=== PATIENT | female | born 1955 | race Asian ===

== ENCOUNTER 2017-12-06 09:36 | Emergency (ER) | payer MEDICAID ==
[~2017-12-06] VITALS: Ht 152.4 cm; Wt 43.2 kg
[~2017-12-06 09:36] MED LIST: CALC260T6 PO; CHOL10002 PO; GUAI120015 PO; HYDR-569 PO; HYDR12.5 PO; LEVO150T8 PO; PSEU120T55 PO; RISE35TA PO
[2017-12-06 11:40] VITALS: BP 166/97
== END 2017-12-06 11:41 | disposition home or self-care (01) ==
LOC: ER 09:36
DX: S93.602A Unspecified sprain of left foot, initial encounter (principal); S90.32XA Contusion of left foot, initial encounter; I10 Essential (primary) hypertension; Z79.899 Other long term (current) drug therapy; W01.0XXA Fall on same level from slipping, tripping and stumbling without subsequent striking against object, initial encounter; Y93.89 Activity, other specified; Y92.89 Other specified places as the place of occurrence of the external cause; Y99.9 Unspecified external cause status
CPT/HCPCS: 73630; 99284

== ENCOUNTER 2018-02-20 12:18 | Emergency (ER) | payer MEDICAID ==
[~2018-02-20] VITALS: Ht 127 cm; Wt 37.0 kg
[2018-02-20 12:22] VITALS: BP 157/90
[2018-02-20] MEDS ORDERED: AMOX-419 PO (13:32)
== END 2018-02-20 14:07 | disposition home or self-care (01) ==
LOC: ER 12:18
DX: H66.92 Otitis media, unspecified, left ear (principal); I10 Essential (primary) hypertension; Z79.899 Other long term (current) drug therapy
CPT/HCPCS: 99283

== ENCOUNTER 2018-08-24 15:50 | Emergency (ER) | payer MEDICAID ==
[~2018-08-24] VITALS: Ht 134.6 cm; Wt 40.5 kg
[2018-08-24] MEDS ORDERED: AZIT250T PO (18:05)
[2018-08-24 18:31] VITALS: BP 193/88
== END 2018-08-24 18:33 | disposition home or self-care (01) ==
LOC: ER 15:51
DX: H66.92 Otitis media, unspecified, left ear (principal); I10 Essential (primary) hypertension; Z98.890 Other specified postprocedural states; Z86.69 Personal history of other diseases of the nervous system and sense organs; Z79.2 Long term (current) use of antibiotics; Z79.899 Other long term (current) drug therapy
CPT/HCPCS: 99283

== ENCOUNTER 2018-12-25 12:58 | Emergency (ER) | payer MEDICAID ==
[~2018-12-25] VITALS: Ht 147.3 cm; Wt 40.8 kg
[~2018-12-25 12:58] MED LIST changes: +CIPR7.5D2 EACH EAR; +HYDR-4383 PO; -HYDR-569 PO; +ONDA4TAB6 PO
[2018-12-25 13:33] VITALS: BP 164/84
== END 2018-12-25 16:00 | disposition left against medical advice (07) ==
LOC: ER 12:59
DX: H92.01 Otalgia, right ear (principal); Z53.21 Procedure and treatment not carried out due to patient leaving prior to being seen by health care provider

== ENCOUNTER 2019-01-14 08:10 | Emergency (ER) | payer MEDICAID ==
[~2019-01-14] VITALS: Ht 147.3 cm; Wt 38.6 kg
[2019-01-14 08:34] VITALS: BP 189/102
--- NOTE | 2019-01-14 09:20 | NUR ---
TERRA COTTA MASON #[id number]
--- NOTE | 2019-01-14 09:20 | NUR ---
ATTEMPTED TO USE VIDEO SHIP PAINTER HELPER LINE WITH PT. BUT THE PT KEEPS MAKING THE SAME SIGNS TO THE SHIP PAINTER HELPER AND THE SHIP PAINTER HELPER STATES SHE DOESN'T THINK THE PT IS COMPREHENDING WHAT SHE IS SIGNING OR WHAT IS VERBALLY BEING SAID BECAUSE THE PT SIGNS ONE THING AND THEN IMMEDIATELY THE OPPOSITE SUCH SIGNING SHE HAS ABD PAIN BUT THEN SIGNS THE "OK" SIGN. CALLED THE PT'S DAUGHTER'S PHONE NUMBER AND LEFT A MESSAGE.
--- NOTE | 2019-01-14 09:30 | NUR ---
can't confirm the pt understands the information that I am saying with assessment. waiting fire control assistant back from pt's family. have checked waiting room but do not see any family members I recognize from pt's family photos. pt has discharge papers but when I ask the pt any question from what is wrong to where her family is, she responds with giving the same motions which seem to show her head, neck and abd hurt and something going on with her ears.
--- NOTE | 2019-01-14 10:17 | NUR ---
ATTEMPTED TO CALL PT'S FAMILY AGAIN.
[2019-01-14] MEDS ORDERED: acetaminophen 325mg tablet PO ONE (13:35)
== END 2019-01-14 14:08 | disposition home or self-care (01) ==
LOC: ER 08:11
DX: H92.01 Otalgia, right ear (principal); I10 Essential (primary) hypertension
CPT/HCPCS: 99281

== ENCOUNTER 2019-04-18 13:22 | Emergency (ER) | payer MEDICAID ==
[~2019-04-18] VITALS: Ht 147.3 cm; Wt 37.0 kg
[2019-04-18 13:42] VITALS: BP 168/94
--- NOTE | 2019-04-18 14:22 | NUR ---
Attempted to use blue translation phone to communicate with patient's spouse, patient is hearing impaired. Prescription Clerk was unable to understand patient's spouse due to speech/hearing impairment.
--- NOTE | 2019-04-18 14:25 | NUR ---
Attempted to contact patient's daughter. No answer, left VM to call back.
[2019-04-18 14:35] LABS: BASOPHILS % (AUTO) 0.7 % (0-1); EOSINOPHILS # (AUTO) 0.1 X10'3 (0-0.9); HEMATOCRIT 34.9 % (35.0-45.0); HEMOGLOBIN 11.9 g/dl (12.0-16.0); LYMPHOCYTES # (AUTO) 1.5 X10'3 (1.1-4.8); LYMPHOCYTES % (AUTO) 27.9 % (21-51); MEAN CORPUSCULAR HEMOGLOBIN 30.5 PG (27.0-31.0); MEAN CORPUSCULAR HGB CONC 34.3 g/dL (33.0-36.5); MEAN CORPUSCULAR VOLUME 89.1 FL (78-98); MEAN PLATELET VOLUME 7.3 FL (7.4-10.4); MONOCYTES # (AUTO) 0.4 X10'3 (0-0.9); NEUTROPHILS # (AUTO) 3.4 X10'3 (1.8-7.7); NEUTROPHILS % (AUTO) 63.4 % (42-75); PLATELET COUNT 292 X10'3 (140-440); RED BLOOD COUNT 3.91 X10'6 (4.20-5.60); RED CELL DISTRIBUTION WIDTH 13.9 % (11.5-14.5); WHITE BLOOD COUNT 5.4 X10'3 (4.5-11.0)
[2019-04-18 14:50] LABS: ALANINE AMINOTRANSFERASE 19 U/L (12-78); ALBUMIN 3.9 G/DL (3.4-5.0); ALBUMIN/GLOBULIN RATIO 1.1 (1.1-1.5); ALKALINE PHOSPHATASE 58 IU/L (46-116); ANION GAP 9 (8-16); ASPARTATE AMINO TRANSFERASE 18 U/L (10-37); BILIRUBIN,TOTAL 0.3 MG/DL (0.1-1.0); BLOOD UREA NITROGEN 13 MG/DL (7-18); BUN/CREATININE RATIO 18.8 (6.6-38.0); CALCIUM 7.8 MG/DL (8.5-10.1); CHLORIDE 105 MMOL/L (99-107); CREATININE 0.69 MG/DL (0.40-0.90); GLUCOSE 87 MG/DL (70-104); POTASSIUM 3.3 MMOL/L (3.5-5.1); SODIUM 140 MMOL/L (135-145); TOTAL CARBON DIOXIDE 25.8 MMOL/L (24-32); TOTAL PROTEIN 7.6 G/DL (6.4-8.2); eGFR 85 ML/MIN
[2019-04-18 14:52] LABS: PARTIAL THROMBOPLASTIN TIME 27 SECONDS (22-32)
== END 2019-04-18 15:55 | disposition home or self-care (01) ==
LOC: ER 13:23
DX: S09.8XXA Other specified injuries of head, initial encounter (principal); R07.9 Chest pain, unspecified; H91.93 Unspecified hearing loss, bilateral; I10 Essential (primary) hypertension; E07.9 Disorder of thyroid, unspecified; Z79.2 Long term (current) use of antibiotics; Z79.899 Other long term (current) drug therapy; W01.0XXA Fall on same level from slipping, tripping and stumbling without subsequent striking against object, initial encounter; Y93.89 Activity, other specified; Y92.89 Other specified places as the place of occurrence of the external cause; Y99.8 Other external cause status
CPT/HCPCS: 36415; 71045; 80053; 84484; 85025; 85610; 85730; 93005; 99284

== ENCOUNTER → 2019-06-26 | Emergency (ER) | payer MEDICAID ==
[~2019-06-26] VITALS: Ht 139.7 cm; Wt 50.0 kg
[~2019-06-26] MED LIST changes: +LORA-269 PO
--- NOTE | 2019-06-26 09:47 | NUR ---
pt and hearing impared, nonverbal and seen here frequently for same same plaints. Dr Weller notified on previous visits pt and do not use normal sign language and no it generalist available to translate for them. pt daughter called and aware they are back per business development intern mandy.
[2019-06-26 10:31] VITALS: BP 183/94
--- NOTE | 2019-06-26 10:45 | NUR ---
Contacted Daughter, Amy. Amy states that Pt has chronic headaches and bilat ear pain that she has been evaluated by her PMD for. PMD told patient to wear earphones for her tinnitis. Daughter told her she would take her to the Dr on her day off, but pt came to the ED today.
--- NOTE | 2019-06-26 11:05 | NUR ---
per CN and RN the patient's daughter is able to comm with the patient has she is deaf and doesnt use standard sign language. daughter is aware of er visit and dc planning
--- NOTE | 2019-06-26 11:06 | NUR ---
ATTEMPTED TO USE SIGN LANGUAGE COMPUTER. UNABLE TO TRANSLATE.
== END | disposition home or self-care (01) ==
LOC: ER 17:54
DX: G89.29 Other chronic pain (principal); H92.03 Otalgia, bilateral; R51 Headache; I10 Essential (primary) hypertension; F32.9 Major depressive disorder, single episode, unspecified; Z86.69 Personal history of other diseases of the nervous system and sense organs; Z98.890 Other specified postprocedural states; Z79.2 Long term (current) use of antibiotics; Z79.899 Other long term (current) drug therapy
CPT/HCPCS: 99283

== ENCOUNTER 2021-10-29 14:01 | Emergency (ER) | payer MEDICAID ==
[~2021-10-29] VITALS: Ht 134.6 cm; Wt 50.0 kg
[2021-10-29 14:09] VITALS: BP 186/95
[2021-10-29] MEDS ORDERED: AMOX-102 PO (14:51)
== END 2021-10-29 15:21 | disposition home or self-care (01) ==
LOC: ER 14:01
DX: H66.91 Otitis media, unspecified, right ear (principal); H92.01 Otalgia, right ear; I10 Essential (primary) hypertension; F32.9 Major depressive disorder, single episode, unspecified; Z86.69 Personal history of other diseases of the nervous system and sense organs; Z98.890 Other specified postprocedural states; Z79.2 Long term (current) use of antibiotics; Z79.899 Other long term (current) drug therapy
CPT/HCPCS: 99283

== ENCOUNTER 2021-11-12 10:08 | Emergency (ER) | payer MEDICAID | END 2021-11-12 12:38 | disposition home or self-care (01) | LOC: ER 10:09 | DX: H92.01 Otalgia, right ear (principal); I10 Essential (primary) hypertension; F32.9 Major depressive disorder, single episode, unspecified; Z86.69 Personal history of other diseases of the nervous system and sense organs; Z79.2 Long term (current) use of antibiotics; Z79.899 Other long term (current) drug therapy | CPT/HCPCS: 99282 ==

== ENCOUNTER 2021-11-20 09:43 | Emergency (ER) | payer MEDICAID ==
[~2021-11-20] VITALS: Ht 137.2 cm; Wt 38.5 kg
--- NOTE | 2021-11-20 11:32 | NUR ---
pt making gestures pointing to her ears then stomach. tried to use application performance engineer phone to obtain information but application performance engineer sharmin #[phone] stated pt was only making noise and no words that he could understand or make out to translate. pt on maninder in no acute distress.
[2021-11-20 13:08] LABS: ALANINE AMINOTRANSFERASE 14 U/L (12-78); ALKALINE PHOSPHATASE 66 IU/L (46-116); ANION GAP 11 (8-16); ASPARTATE AMINO TRANSFERASE 22 U/L (10-37); BILIRUBIN,TOTAL 0.4 MG/DL (0.1-1.0); BLOOD UREA NITROGEN 18 MG/DL (7-18); BUN/CREATININE RATIO 18.8 (6.6-38.0); CALCIUM 8.9 MG/DL (8.5-10.1); CHLORIDE 105 MMOL/L (99-107); CREATININE 0.96 MG/DL (0.40-0.90); GLUCOSE 113 MG/DL (70-104); POTASSIUM 3.3 MMOL/L (3.5-5.1); SODIUM 143 MMOL/L (135-145); TOTAL CARBON DIOXIDE 27.1 MMOL/L (24-32); eGFR 58 ML/MIN
[2021-11-20 13:10] LABS: HEMOGLOBIN 12.4 g/dl (12.0-16.0)
[2021-11-20 13:11] LABS: D-DIMER 0.73 MG/L FEU (0-0.50)
[2021-11-20 13:12] LABS: BASOPHILS % (AUTO) 0.3 % (0-1); EOSINOPHILS % (AUTO) 0.2 % (0-6); HEMATOCRIT 36.4 % (35.0-45.0); LYMPHOCYTES # (AUTO) 0.5 X10'3 (1.1-4.8); LYMPHOCYTES % (AUTO) 6.5 % (21-51); MEAN CORPUSCULAR HEMOGLOBIN 30.5 PG (27.0-31.0); MEAN CORPUSCULAR VOLUME 89.7 FL (78-98); MEAN PLATELET VOLUME 8.6 FL (7.4-10.4); MONOCYTES # (AUTO) 0.9 X10'3 (0-0.9); NEUTROPHILS # (AUTO) 6.4 X10'3 (1.8-7.7); PLATELET COUNT 274 X10'3 (140-440); RED BLOOD COUNT 4.06 X10'6 (4.20-5.60); RED CELL DISTRIBUTION WIDTH 13.2 % (11.5-14.5); WHITE BLOOD COUNT 7.9 X10'3 (4.5-11.0)
[2021-11-20 13:21] LABS: MAGNESIUM 2.3 MG/DL (1.5-2.4)
[2021-11-20] MEDS ORDERED: ringers solution, lactated 1000ml IV soln IV ONE ×2 (13:35→16:10)
[2021-11-20] MEDS ORDERED: iohexol 350MG/ML 100ml bottle IV ONE (14:01)
[2021-11-20] MEDS ORDERED: acetaminophen 325mg tablet PO ONE (14:05)
[2021-11-20 15:24] LABS: URINE AMPHETAMINE SCREEN NEGATIVE (Neg); URINE BARBITUATE SCREEN NEGATIVE (Neg); URINE BENZODIAZEPINES SCREEN NEGATIVE (Neg); URINE CANNABINOID SCREEN NEGATIVE (Neg); URINE COCAINE SCREEN NEGATIVE (Neg); URINE METHADONE SCREEN NEGATIVE (Neg); URINE OPIATE SCREEN NEGATIVE (Neg); URINE PHENCYCLIDINE SCREEN NEGATIVE (Neg)
[2021-11-20 16:12] VITALS: BP 108/45
--- NOTE | 2021-11-20 16:21 | NUR ---
daughter called stating she had a missed call from the hospital on her phone. stated pt is being d/c and when she will be picking pt up. daughter stated pt can walk home. educated daughterthat pt needs to be picked up due to covid status and and medical conditions. daughter stated she would send her daughter.
[2021-11-20] MEDS ORDERED: CASIRIVIMAB/IMDEVIMAB inject. 10 ML in normal saline 100ml IV soln 100 ML IV ONE (16:30)
== END 2021-11-20 18:10 | disposition home or self-care (01) ==
LOC: ER 09:44
DX: U07.1 COVID-19 (principal); H91.3 Deaf nonspeaking, not elsewhere classified; H92.02 Otalgia, left ear; R00.0 Tachycardia, unspecified; I10 Essential (primary) hypertension; F32.9 Major depressive disorder, single episode, unspecified; Z86.69 Personal history of other diseases of the nervous system and sense organs; Z98.890 Other specified postprocedural states; Z79.2 Long term (current) use of antibiotics; Z79.899 Other long term (current) drug therapy
CPT/HCPCS: 36415; 71045; 71275; 80053; 80305; 83605; 83735; 84145; 84443; 84484; 85025; 85379; 87040; 87502; 87503; 87635; 93005; 96360; 96361; 99285; C9803; J3490; J7120; M0243; Q0244; Q9967

== ENCOUNTER 2022-02-10 15:18 | Emergency (ER) | payer MEDICAID ==
[~2022-02-10] VITALS: Ht 137.2 cm; Wt 36.4 kg
[2022-02-10 15:31] VITALS: BP 180/81
[2022-02-10] MEDS ORDERED: acetaminophen 325mg tablet PO ONE (16:15)
[2022-02-10] MEDS ORDERED: amox tr/potassium clavulanate 875/125mg TAB PO ONE (16:15)
[2022-02-10] MEDS ORDERED: AMOX-117 PO (16:15)
--- NOTE | 2022-02-10 17:03 | NUR ---
pt c/o abd pain. unable to contact family for full assessment. pt in no acute distress doing assessment
== END 2022-02-10 17:04 | disposition home or self-care (01) ==
LOC: ER 15:19
DX: H66.91 Otitis media, unspecified, right ear (principal); R10.84 Generalized abdominal pain; I10 Essential (primary) hypertension; F32.A Depression, unspecified; Z86.69 Personal history of other diseases of the nervous system and sense organs; Z98.890 Other specified postprocedural states; Z79.2 Long term (current) use of antibiotics; Z79.899 Other long term (current) drug therapy
CPT/HCPCS: 72070; 99283

== ENCOUNTER 2022-06-30 11:12 | Emergency (ER) | payer MEDICAID ==
[~2022-06-30] VITALS: Ht 142.2 cm; Wt 36.0 kg
[2022-06-30] MEDS ORDERED: acetaminophen 325mg tablet PO ONE (12:05)
[2022-06-30] MEDS ORDERED: AMOX-441 PO (12:20)
--- NOTE | 2022-06-30 13:24 | NUR ---
PT NON-VERBAL, PT USES OWN FOR OF SIGN LANGUAGE. LANGUAGE UNKNOWN. PT DAUGHTER CONTACTED MULTIPLE ATTEMPTS MADE. LEFT DAUGHTER VOICEMAIL TO RELAY DC INSTRUCTIONS
--- NOTE | 2022-06-30 14:12 | NUR ---
PTS DAUGHTER CRIS CONTACTED AND SAID SHE WAS UNAVAILABLE. PTS DAUGHTER INFORMED TO ANSWER PHONE REGARDING DC EDUCATION PAPERWORK. DAUGHTER DID NOT ANSWER PHONE.
--- NOTE | 2022-06-30 14:30 | NUR ---
PTS DAUGHTER CONTACTED, AND RECEIVED DC EDUCATION. PTS DAUGHTER VERBALIZED UNDERSTANDING OF DC EDUCATION.
== END 2022-06-30 14:23 | disposition home or self-care (01) ==
LOC: ER 11:13
DX: H66.91 Otitis media, unspecified, right ear (principal); I10 Essential (primary) hypertension
CPT/HCPCS: 99283

== ENCOUNTER 2022-08-29 12:12 | Emergency (ER) | payer MEDICAID ==
[~2022-08-29] VITALS: Ht 147.3 cm; Wt 43.0 kg
[2022-08-29 13:00] VITALS: BP 216/100
[2022-08-29] MEDS ORDERED: acetaminophen 325mg tablet PO ONE (14:55)
== END 2022-08-29 17:47 | disposition home or self-care (01) ==
LOC: ER 12:13
DX: H93.13 Tinnitus, bilateral (principal); I10 Essential (primary) hypertension; F32.A Depression, unspecified; Z86.69 Personal history of other diseases of the nervous system and sense organs; Z98.890 Other specified postprocedural states; Z79.2 Long term (current) use of antibiotics; Z79.899 Other long term (current) drug therapy
CPT/HCPCS: 99282

== ENCOUNTER 2024-05-01 07:10 | Inpatient (IN) | payer MEDICAID ==
[~2024-05-01] VITALS: Ht 137.2 cm; Wt 41.7 kg
[2024-05-01 08:10] LABS: BASOPHILS % (AUTO) 0.6 % (0-1); EOSINOPHILS % (AUTO) 0.4 % (0-6); HEMATOCRIT 37.9 % (35.0-45.0); HEMOGLOBIN 12.6 g/dl (12.0-16.0); LYMPHOCYTES # (AUTO) 1.1 X10'3 (1.1-4.8); LYMPHOCYTES % (AUTO) 19.7 % (21-51); MEAN CORPUSCULAR HEMOGLOBIN 30.2 PG (27.0-31.0); MEAN CORPUSCULAR HGB CONC 33.3 g/dL (33.0-36.5); MEAN CORPUSCULAR VOLUME 90.8 FL (78-98); MEAN PLATELET VOLUME 7.4 FL (7.4-10.4); MONOCYTES # (AUTO) 0.5 X10'3 (0-0.9); MONOCYTES % (AUTO) 8.6 % (2-12); NEUTROPHILS # (AUTO) 3.9 X10'3 (1.8-7.7); NEUTROPHILS % (AUTO) 70.7 % (42-75); PLATELET COUNT 264 X10'3 (140-440); RED BLOOD COUNT 4.18 X10'6 (4.20-5.60); RED CELL DISTRIBUTION WIDTH 13.8 % (11.5-14.5); WHITE BLOOD COUNT 5.5 X10'3 (4.5-11.0)
[2024-05-01 08:18] LABS: ANION GAP 11 (8-16); BLOOD UREA NITROGEN 12 MG/DL (7-18); CALCIUM 8.6 MG/DL (8.5-10.1); CHLORIDE 106 MMOL/L (99-107); CREATININE 0.86 MG/DL (0.40-0.90); GLUCOSE 111 MG/DL (70-104); LIPASE 14 U/L (16-77); POTASSIUM 3.2 MMOL/L (3.5-5.1); SODIUM 142 MMOL/L (135-145); TOTAL CARBON DIOXIDE 24.9 MMOL/L (24-32); eCRCL 30 ML/MIN; eGFR 65 ML/MIN
[2024-05-01 08:23] LABS: APTT 26 SECONDS (22-32); PROTHROMBIN TIME 10.8 SECONDS (9.0-12.0)
[2024-05-01] MEDS: potassium Cl 20 mEq SR tablet PO ONE ×2 (08:45→08:59)
[2024-05-01] MEDS: normal saline 1000ml 1,000 ML IV ONE (08:51)
[2024-05-01] MEDS: hydrALAZINE 20mg/ml inj. IV ONE (09:01)
[2024-05-01] MEDS: HYDROchlorothiazide 25mg tablet PO ONE (09:02)
[2024-05-01] MEDS: amLODIPine 5mg tablet PO ONE (09:02)
[2024-05-01 09:53] LABS: BILIRUBIN,URINE NEGATIVE (Neg); CLARITY,URINE CLEAR (Clear); COLOR,URINE STRAW (Yellow); GLUCOSE, URINE NEGATIVE (Neg); KETONES,URINE NEGATIVE (Neg); LEUKOCYTE ESTERASE ,URINE NEGATIVE (Neg); NITRITES, URINE NEGATIVE (Neg); OCCULT BLOOD,URINE NEGATIVE (Neg); PROTEIN,URINE TRACE mg/dl (Neg); UROBILINOGEN,URINE 0.2 E.U/dL (0.2-1.0)
[2024-05-01 09:59] LABS: UA COLLECTION TYPE NON-SPECIFIED
[2024-05-01 10:00] LABS: BACTERIA,URINE NONE SEEN /HPF (Neg); CELLULAR CAST 0-4 /LPF (NEGATIVE); COARSE GRANULAR CAST 0-3 /LPF (NEGATIVE); MUCUS STRANDS NONE SEEN /LPF (Neg); RBC,URINE NONE SEEN /HPF (0-2); SQUAMOUS EPITHELIAL CELL,UR FEW /LPF (FEW); WBC,URINE 0-4 /HPF (0-4)
[2024-05-01] MEDS ORDERED: iohexol 300mg/ml 100ml inj. ONE (10:14)
[2024-05-01] MEDS: morphine 2 MG/ML inj. syringe IV ONE (10:37)
[2024-05-01] MEDS: enoxaparin 30mg/0.3ml syringe SUBCUT ONE (12:03)
[2024-05-01] MEDS ORDERED: potassium Cl 40MEQ/1/2NS 520ml 520 ML IV PRN (12:55)
[2024-05-01] MEDS ORDERED: acetaminophen 325mg tablet PO PRN ×2 (12:55)
[2024-05-01] MEDS ORDERED: HYDROcodone/acetaminophen 10/325mg tab PO PRN (12:55)
[2024-05-01] MEDS ORDERED: magnesium Cl slow-release 64mg tablet PO PRN (12:55)
[2024-05-01] MEDS ORDERED: magnesium 2GM in 50ml NS 50 ML IV PRN (12:55)
[2024-05-01] MEDS ORDERED: HYDROcodone/acetaminophen 5mg/325mg tablet PO PRN (12:55)
[2024-05-01] MEDS ORDERED: magnesium 4gm in 100ml NS 100 ML IV PRN (12:55)
[2024-05-01] MEDS ORDERED: potassium Cl 20 mEq SR tablet PO PRN (12:55)
[2024-05-01] MEDS ORDERED: mag hydrox/Alum hydrox/simeth 30ml oral suspension PO PRN (12:55)
[2024-05-01] MEDS ORDERED: ondansetron/PF 4mg/2ml inj IV PRN (12:55)
[2024-05-01] MEDS ORDERED: nitroGLYCERIN 0.2mg/hour patch TD PRN (13:00)
[2024-05-01 13:46] LABS: HEMOGLOBIN A1C 5.9 % (4.5-6.2)
[2024-05-01 15:28] VITALS: BP 175/94; PULSE 88; RESP 15; TEMP 98.4; O2SAT 99
[2024-05-01] MEDS: normal saline 1000ml 1,000 ML IV SCH (15:44)
[2024-05-01] MEDS: aspirin 81mg, enteric-coated 1 TAB TABLET.DR PO SCH (15:50)
[2024-05-01] MEDS: morphine 2 MG/ML inj. syringe IV PRN (17:00)
[2024-05-01 18:00] VITALS: BP 135/67; PULSE 66; RESP 17; TEMP 98.7; O2SAT 97
[2024-05-01] MEDS ORDERED: RISEDRONATE SODIUM PO SCH (18:50)
[2024-05-01] MEDS ORDERED: hydrALAZINE 20mg/ml inj. IV PRN (18:55)
[2024-05-01] MEDS: K and/or MAG REPLACEMENT MC SCH (20:00)
[2024-05-01] MEDS ORDERED: GUAIFENESIN PO SCH (20:00)
[2024-05-01 22:00] VITALS: BP 130/72; PULSE 81; RESP 16; TEMP 98.4; O2SAT 97
[2024-05-01] MEDS: heparin, porcine 5000 units/ml vial SQ SCH (23:07)
[2024-05-01] MEDS: calcium carbonate 500mg tablet PO SCH (23:08)
[2024-05-02] VITALS (15 sets, daily range): BP systolic 124–170; BP diastolic 62–92; PULSE 74–92; RESP 14–18; TEMP 97.5–98.3; O2SAT 97–100
[2024-05-02 06:41] LABS: BASOPHILS % (AUTO) 0.5 % (0-1); EOSINOPHILS # (AUTO) 0.1 X10'3 (0-0.9); EOSINOPHILS % (AUTO) 2.3 % (0-6); HEMATOCRIT 34.4 % (35.0-45.0); HEMOGLOBIN 11.4 g/dl (12.0-16.0); LYMPHOCYTES % (AUTO) 36.9 % (21-51); MEAN CORPUSCULAR HGB CONC 33.1 g/dL (33.0-36.5); MEAN CORPUSCULAR VOLUME 90.5 FL (78-98); MEAN PLATELET VOLUME 7.7 FL (7.4-10.4); MONOCYTES # (AUTO) 0.6 X10'3 (0-0.9); MONOCYTES % (AUTO) 11.3 % (2-12); NEUTROPHILS # (AUTO) 2.7 X10'3 (1.8-7.7); PLATELET COUNT 239 X10'3 (140-440); RED CELL DISTRIBUTION WIDTH 14.1 % (11.5-14.5); WHITE BLOOD COUNT 5.4 X10'3 (4.5-11.0)
[2024-05-02] MEDS: HYDROchlorothiazide 12.5mg capsule PO SCH (07:10)
[2024-05-02] MEDS: pantoprazole 40mg Tablet.DR PO SCH (07:10)
[2024-05-02] MEDS: levoTHYROXINE 75mcg tablet PO SCH (07:10)
[2024-05-02 07:15] LABS: ALBUMIN 3.2 G/DL (3.4-5.0); ANION GAP 12 (8-16); BLOOD UREA NITROGEN 15 MG/DL (7-18); BUN/CREATININE RATIO 18.3 (10.0-20.0); CALCIUM 8.1 MG/DL (8.5-10.1); CHLORIDE 107 MMOL/L (99-107); CHOL/HDL RATIO 3.3 (0.00-4.99); CHOLESTEROL 194 MG/DL (0-200); CREATININE 0.82 MG/DL (0.40-0.90); GLUCOSE 92 MG/DL (70-104); HDL CHOLESTEROL 58 MG/DL (35-60); LDL CHOLESTEROL 121 MG/DL (50-100); MAGNESIUM 2.2 MG/DL (1.5-2.4); POTASSIUM 3.1 MMOL/L (3.5-5.1); SODIUM 142 MMOL/L (135-145); TOTAL CARBON DIOXIDE 22.9 MMOL/L (24-32); TRIGLYCERIDES 48 MG/DL (20-135); eCRCL 32 ML/MIN; eGFR 69 ML/MIN
[2024-05-02] MEDS: atorvastatin 20mg tablet PO SCH (07:47)
[2024-05-02 07:53] LABS: PLATELET ESTIMATE NORMAL; TOTAL CELLS COUNTED 100
[2024-05-02] MEDS: potassium Cl 20 mEq SR tablet PO PRN (08:03)
[2024-05-02] MEDS: regadenoson 0.4mg/5ml syringe IV ONE (14:20)
[2024-05-03 06:00] VITALS: BP 155/67; PULSE 89; RESP 17; TEMP 96.8; O2SAT 94
[2024-05-03 07:18] LABS: ALBUMIN 3.5 G/DL (3.4-5.0); ANION GAP 9 (8-16); BASOPHILS % (AUTO) 0.7 % (0-1); BLOOD UREA NITROGEN 16 MG/DL (7-18); CALCIUM 8.5 MG/DL (8.5-10.1); CHLORIDE 104 MMOL/L (99-107); CREATININE 0.89 MG/DL (0.40-0.90); EOSINOPHILS # (AUTO) 0.1 X10'3 (0-0.9); EOSINOPHILS % (AUTO) 1.9 % (0-6); GLUCOSE 90 MG/DL (70-104); HEMATOCRIT 38.1 % (35.0-45.0); HEMOGLOBIN 12.5 g/dl (12.0-16.0); LYMPHOCYTES # (AUTO) 2.5 X10'3 (1.1-4.8); LYMPHOCYTES % (AUTO) 39.7 % (21-51); MEAN CORPUSCULAR HEMOGLOBIN 29.9 PG (27.0-31.0); MEAN CORPUSCULAR HGB CONC 32.8 g/dL (33.0-36.5); MEAN CORPUSCULAR VOLUME 91.4 FL (78-98); MEAN PLATELET VOLUME 8.5 FL (7.4-10.4); MONOCYTES # (AUTO) 0.7 X10'3 (0-0.9); MONOCYTES % (AUTO) 10.3 % (2-12); NEUTROPHILS % (AUTO) 47.4 % (42-75); PHOSPHORUS 4.1 MG/DL (2.3-4.5); PLATELET COUNT 248 X10'3 (140-440); POTASSIUM 3.4 MMOL/L (3.5-5.1); RED BLOOD COUNT 4.17 X10'6 (4.20-5.60); RED CELL DISTRIBUTION WIDTH 14.1 % (11.5-14.5); SODIUM 137 MMOL/L (135-145); TOTAL CARBON DIOXIDE 24.3 MMOL/L (24-32); WHITE BLOOD COUNT 6.3 X10'3 (4.5-11.0); eCRCL 29 ML/MIN; eGFR 63 ML/MIN
[2024-05-03] MEDS: atorvastatin 20mg tablet PO SCH (07:18)
[2024-05-03 08:00] VITALS: RESP 17; O2SAT 94
[2024-05-03 10:00] VITALS: BP 134/60; PULSE 83; RESP 12; TEMP 97.2; O2SAT 100
[2024-05-03] MEDS ORDERED: metoprolol succinate 25mg (24-HOUR) SR. Tablet PO SCH (11:50)
[2024-05-03] MEDS: metoprolol succinate 25mg (24-HOUR) SR. Tablet PO SCH (13:34)
[2024-05-03] MEDS ORDERED: POTASSIUM BICARB 20meq eff tab 20 MEQ TABLET.EFF PO ONE (13:45)
[2024-05-03] MEDS: POTASSIUM BICARB 20meq eff tab 20 MEQ TABLET.EFF PO ONE (14:31)
[2024-05-03] MEDS ORDERED: METO-395 PO (14:58)
[2024-05-03] MEDS ORDERED: ASPI-1071 PO (14:58)
[2024-05-03] MEDS ORDERED: ATOR20TA66 PO (14:58)
[2024-05-04] MEDS ORDERED: metoprolol succinate 25mg (24-HOUR) SR. Tablet PO SCH (08:00)
== END 2024-05-03 16:10 | disposition home or self-care (01) | DRG 190 ==
LOC: ER 07:11 → ED HOLD 12:55 → ORTHO 4S 15:31
PROVIDERS: ADMIT Family Medicine; ATTEND Family Medicine
PROC: BW251ZZ Computerized Tomography (CT Scan) of Chest, Abdomen and Pelvis using Low Osmolar Contrast (ICD-10-PCS; 2024-05-01)
PROC: 4A02XM4 Measurement of Cardiac Total Activity, External Approach (ICD-10-PCS; principal; 2024-05-02)
PROC: 3E033HZ Introduction of Radioactive Substance into Peripheral Vein, Percutaneous Approach (ICD-10-PCS; 2024-05-02)
DX: I21.4 Non-ST elevation (NSTEMI) myocardial infarction (principal); E87.6 Hypokalemia; G40.909 Epilepsy, unspecified, not intractable, without status epilepticus; I10 Essential (primary) hypertension; M81.0 Age-related osteoporosis without current pathological fracture; F32.A Depression, unspecified; Z79.899 Other long term (current) drug therapy
CPT/HCPCS: 36415; 70450; 71045; 71260; 74177; 78452; 80048; 80061; 81001; 83036; 83690; 83735; 84100; 84484; 85007; 85025; 85610; 85730; 87081; 93005; 93306; 96374; 96375; 99291; A9500; G0378; J0360; J1644; J1650; J2270; J2785; J3490; J7030; Q9967

== ENCOUNTER 2024-12-09 09:34 | Emergency (ER) | payer MEDICAID ==
[~2024-12-09] VITALS: Ht 137.2 cm; Wt 40.3 kg
[~2024-12-09 09:34] MED LIST changes: +ASPI-1071 PO; +ATOR20TA66 PO; -CIPR7.5D2 EACH EAR; -LORA-269 PO; +METO-395 PO
[2024-12-09 10:08] VITALS: BP 192/82; PULSE 98; RESP 16; TEMP 97.8; O2SAT 99
[2024-12-09 12:28] LABS: BASOPHILS % (AUTO) 0.4 % (0-1); EOSINOPHILS % (AUTO) 0.3 % (0-6); HEMATOCRIT 38.3 % (35.0-45.0); LYMPHOCYTES # (AUTO) 1.7 X10'3 (1.1-4.8); MEAN CORPUSCULAR HEMOGLOBIN 30.8 PG (27.0-31.0); MEAN CORPUSCULAR HGB CONC 33.9 g/dL (33.0-36.5); MEAN CORPUSCULAR VOLUME 90.8 FL (78-98); MEAN PLATELET VOLUME 8.2 FL (7.4-10.4); MONOCYTES # (AUTO) 0.5 X10'3 (0-0.9); MONOCYTES % (AUTO) 6.5 % (2-12); NEUTROPHILS # (AUTO) 5.3 X10'3 (1.8-7.7); NEUTROPHILS % (AUTO) 69.8 % (42-75); PLATELET COUNT 279 X10'3 (140-440); RED BLOOD COUNT 4.22 X10'6 (4.20-5.60); RED CELL DISTRIBUTION WIDTH 13.7 % (11.5-14.5); WHITE BLOOD COUNT 7.6 X10'3 (4.5-11.0)
[2024-12-09 12:48] LABS: ALANINE AMINOTRANSFERASE 18 U/L (12-78); ALBUMIN/GLOBULIN RATIO 1.2 (1.1-1.5); ALKALINE PHOSPHATASE 65 IU/L (46-116); ANION GAP 10 (8-16); ASPARTATE AMINO TRANSFERASE 16 U/L (10-37); BILIRUBIN,TOTAL 0.6 MG/DL (0.1-1.0); BLOOD UREA NITROGEN 19 MG/DL (7-18); BUN/CREATININE RATIO 24.7 (10.0-20.0); CALCIUM 8.6 MG/DL (8.5-10.1); CHLORIDE 107 MMOL/L (99-107); CREATININE 0.77 MG/DL (0.40-0.90); GLUCOSE 106 MG/DL (70-104); POTASSIUM 3.9 MMOL/L (3.5-5.1); SODIUM 142 MMOL/L (135-145); TOTAL CARBON DIOXIDE 25.5 MMOL/L (24-32); TOTAL PROTEIN 7.4 G/DL (6.4-8.2); eCRCL 34 ML/MIN; eGFR 74 ML/MIN
[2024-12-09 13:02] LABS: STREP A SCREEN NEGATIVE (Neg)
[2024-12-09] MEDS ORDERED: OMEP40CA21 PO (13:16)
[2024-12-09] MEDS ORDERED: SUCR1TAB PO (13:16)
== END 2024-12-09 13:26 | disposition home or self-care (01) ==
LOC: ER 09:35
DX: H93.13 Tinnitus, bilateral (principal); K21.9 Gastro-esophageal reflux disease without esophagitis; I10 Essential (primary) hypertension; F32.A Depression, unspecified; Z98.890 Other specified postprocedural states; Z20.822 Contact with and (suspected) exposure to COVID-19; Z79.82 Long term (current) use of aspirin
CPT/HCPCS: 36415; 80053; 85025; 87081; 87811; 87880; 99283

== ENCOUNTER 2025-11-19 14:39 | Inpatient (IN) | payer MEDICAID ==
[~2025-11-19 14:39] MED LIST changes: +SUCR1TAB PO
--- NOTE | 2025-11-24 15:33 | RADIOLOGY REPORT ---
EXAM: CT CT ABDOMEN PELVIS W/ IV CONTRAST History: ABD PAIN Comparison Study: None TECHNIQUE: Multidetector CT of the abdomen was performed from lung bases to pubic symphysis. Imaging was performed without IV contrast. Axial, coronal and sagittal multiplanar reformats were obtained from the axial data set by the technologist. Radiation Dose Information: CT Dose: CTDI volume is 4.28 mGy. Dose-length product is 200.48 mGy*cm FINDINGS: Bibasilar atelectasis. Left basilar Calcified granuloma. Partially visualized heart is unremarkable. Liver, spleen, gallbladder, and adrenal glands are unremarkable. Small hypodensities over the pancreatic head. No significant dilatation of the common bile duct . Borderline short segmental dilatation of the pancreatic duct over the pancreatic head up to 4 mm. Mild bilateral Hydronephrosis with no obstructing calculus noted. Ureters and urinary bladder are unremarkable. Uterus is unremarkable. Limited evaluation of the adnexa. Limited evaluation of the stomach due to inadequate distention. Mild wall thickening Of proximal duodenum. The remainder of the small bowel loops unremarkable. Appendix is unremarkable. Anal wall thickening. The large bowel is otherwise unremarkable. No evidence of intraperitoneal free air or free fluid. No evidence of aortic aneurysm or dissection. Minimal atherosclerotic calcification of the aorta and bilateral iliacs. No significant lymphadenopathy. The soft tissues are unremarkable. Diffuse demineralization. Mild loss of vertebral body height of L5 and T12 of unknown chronicity, likely chronic. IMPRESSION: Wall thickening of the proximal duodenum. Correlate for Duodenitis. Limited evaluation of the stomach due to inadequate distention. Small hypodensities over the pancreatic head. MRI is recommended for further evaluation. Circumferential smooth wall thickening. Neoplasm can not be completely excluded. Mild bilateral renal hydronephrosis with no obstructing calculus noted. OWS MOBILE DEVELOPER cc: MARQUIS RAMIREZ MD
== END 2025-11-21 14:30 | disposition home or self-care (01) | DRG 241 ==
LOC: ER 14:39 → SUR 3N 21:50
PROVIDERS: ADMIT Internal Medicine; ATTEND Internal Medicine
PROC: BW211ZZ Computerized Tomography (CT Scan) of Abdomen and Pelvis using Low Osmolar Contrast (ICD-10-PCS; principal; 2025-11-19)
DX: K29.80 Duodenitis without bleeding (principal); C25.9 Malignant neoplasm of pancreas, unspecified; E87.6 Hypokalemia
CPT/HCPCS: 74176; 99285; G0378